=== PATIENT | female | born 1955 | race Two or more races ===

== ENCOUNTER 2022-08-30 08:35 | Emergency (ER) | payer OTHER ==
[~2022-08-30] VITALS: Ht 154.9 cm; Wt 72.6 kg
[2022-08-30] MEDS ORDERED: LISINOPRIL5 MG (08:55)
[2022-08-30] MEDS ORDERED: ATORVASTATIN CA20 MG (08:55)
[2022-08-30] MEDS ORDERED: GLIPIZIDE5 MG (08:56)
[2022-08-30] MEDS ORDERED: MELOXICAM7.5 MG (08:56)
[2022-08-30] MEDS ORDERED: HUMULIN N100 UNIT/2 (08:57)
[2022-08-30] MEDS ORDERED: HYDROCODONE-HO1 EAC1 (08:58)
== END 2022-08-30 12:02 | disposition home or self-care (01) ==
LOC: ER 08:35
DX: N20.0 Calculus of kidney (principal); E11.65 Type 2 diabetes mellitus with hyperglycemia; Z79.4 Long term (current) use of insulin; Z88.2 Allergy status to sulfonamides; I10 Essential (primary) hypertension; E78.00 Pure hypercholesterolemia, unspecified